=== PATIENT | male | born 1940 | race Caucasian/White ===

== ENCOUNTER → 2020-03-04 14:38 | Outpatient (BNVA) | payer MEDICARE, SELFPAY | PROVIDERS: Visit Provider Family Medicine | DX: I10 Essential (primary) hypertension (principal); N40.0 Benign prostatic hyperplasia without lower urinary tract symptoms; N40.1 Benign prostatic hyperplasia with lower urinary tract symptoms; R35.0 Frequency of micturition; Z12.5 Encounter for screening for malignant neoplasm of prostate | CPT/HCPCS: 80053; 80061; 85025; G0103 ==

== ENCOUNTER → 2020-09-02 17:09 | Outpatient (BNVA) | payer MEDICARE, SELFPAY | PROVIDERS: Visit Provider Family Medicine | DX: E78.2 Mixed hyperlipidemia (principal); I10 Essential (primary) hypertension; N40.1 Benign prostatic hyperplasia with lower urinary tract symptoms; R35.0 Frequency of micturition; Z71.89 Other specified counseling | CPT/HCPCS: 80053; 80061; 85025 ==

== ENCOUNTER → 2020-12-07 15:47 | Outpatient (BNVA) | payer MEDICARE, SELFPAY | PROVIDERS: Visit Provider Family Medicine | DX: I10 Essential (primary) hypertension (principal); E78.2 Mixed hyperlipidemia | CPT/HCPCS: 80053; 80061; 85025 ==

== ENCOUNTER → 2021-02-22 12:14 | Outpatient (BNVA) | payer MEDICARE, SELFPAY | PROVIDERS: Visit Provider Family Medicine | DX: E78.2 Mixed hyperlipidemia (principal); I10 Essential (primary) hypertension | CPT/HCPCS: 80053; 80061; 85025 ==

== ENCOUNTER → 2023-04-12 14:30 | Outpatient (BNVA) | payer MEDICARE, SELFPAY | PROVIDERS: PCP Family Medicine; Visit Provider Family Medicine | DX: E78.2 Mixed hyperlipidemia (principal); I10 Essential (primary) hypertension; N40.0 Benign prostatic hyperplasia without lower urinary tract symptoms | CPT/HCPCS: 80053; 80061; 84443; 85025; G0103 ==

== ENCOUNTER 2023-05-24 12:52 | Emergency (ER) | payer MEDICARE, SELFPAY ==
[2023-05-24 12:54] VITALS: BP 145/88; PULSE 82; RESP 20; TEMP 36.8; O2SAT 98
--- NOTE | 2023-05-24 13:02 | XR_ITS ---
WS: [id number] EXAMINATION: XR chest 1V portable [id number] REASON FOR EXAM: dyspnea/cough COMPARISON: None available. ORDER DATE: 05/24/2023 1:03 PM TECHNIQUE: A single, portable frontal chest x-ray was obtained. X-RAY FINDINGS: There is some subtle groundglass opacity in the left lung base near the costophrenic angle with diaph ragm elevation. Remaining lungs are clear. Pleural spaces are clear. No pleural effusions or pneumothorax. Cardiomediastinal silhouette demonstrates atherosclerotic aortic change. No evidence for pulmonary ed fabián. Soft tissue and osseous structures are unremarkable. No tubes or lines are present. XR/XR chest 1V portable [id number] IMPRESSION: Possible early infiltrate or atelectasis in left lower lobe recommend a lateral chest view for further assessment
--- NOTE | 2023-05-24 13:04 | ED_ITS ---
HPI - General Adult General: Chief complaint: Shortness of Breath/Dyspnea Stated complaint: Weakness Time Seen by Provider: 05/24/23 12:57 Source: patient Mode of arrival: EMS History of Present Illness: 82-year-old male presents emergency complaining of shortness of breath. He was working outside had been outside for a time began to feel weak and lightheaded dizzy had a tingling sensation became increasingly short of breath difficulty with activity. He said that his symptoms did seem to improve so his friend called the ambulance. He states that he feels 100% better now he was given IV fluids in route. He recently moved to this area is not accustomed to the humidity. He has no known history of coronary artery disease he is not diabetic no chronic renal disease or lung disease. Onset (ago): minute(s) Relieving factors: none Exacerbating factors: none Associated symptoms: Reports short of breath; Deny chest pain, confusion, cough, diaphoresis, decreased appetite, dyspnea, fevers/chills, headache(s), malaise, nausea, rash, palpitations, seizures, syncope, vomiting or weakness Treatments prior to arrival: none Review of Systems Const: Denies: fever(s), chills, malaise or diaphoresis ENMT: Denies: throat pain, ear or mastoid pain, nasal discharge or nasal destin estion Card: Denies: chest pain, palpitations or syncope Resp: Denies: dyspnea GI: Denies: abdominal pain, nausea or vomiting : Denies: flank pain, dysuria, urinary frequency or urinary urgency Musc: Denies: neck pain or back pain Skin/Breast: Denies: rash Neuro: Denies: headache(s) or confusion PFSH ED PFSH: Medical History Hx of fracture of hip Surgical History Hx of appendectomy Family History Other AA (alcohol abuse) Hypertension Social History Smoking and tobacco status: former smoker Quit status (tobacco): has quit using tobacco Year quit tobacco: 1981 Former quit date comment: PPD x 20 yrs Alcohol intake: never Substance/Drug Use: current Substance/Drug use frequency: daily Lives independently: Yes Marital status: Single service: Yes status: Discharged branch: [employer] Current occupational status: retired Current gender identity: Male Special ward needs: No Agree to transfusion: Yes Physical Exam Const: GENERAL APPEARANCE: cooperative and comfortable OR IENTATION/CONSCIOUSNESS: Yes awake, Yes oriented to person, Yes oriented to place and Yes oriented to time HENMT: COMMON NORMALS: normocephalic, atraumatic and hearing grossly normal bilaterally HEAD & SCALP: normocephalic and atraumatic Resp: COMMON NORMALS: normal respiratory effort, No retractions, No use of accessory muscles and clear to auscultation bilaterally AUSCULTATION: clear to auscultation bilaterally Cardio: COMMON NORMALS: regular rate, regular rhythm and No murmurs present (Cardio) RATE: regular rate RHYTHM: regular rhythm GI: COMMON NORMALS: Soft to palpation and No hepatosplenomegaly present AUSCULTATION: Yes normoactive bowel sounds PALPATION: Yes Soft to palpation, No Tenderness to palpation present (GI), No Guarding due to palpation present (GI) and Yes No hepatosplenomegaly present Extremity: COMMON NORMALS: normal to inspection, capillary refill normal, no clubbing, cyanosis or edema, no calf tenderness and no pedal edema Neuro: SENSORIUM/ORIENTATION: Yes oriented to person, Yes oriented to place and Yes oriented to time Skin: COMMON NORMALS: no rashes or lesions noted GENERAL SKIN EXAM: no rashes or lesions noted Course Vital Signs: Vital signs: Vital Signs Temperature 98.3 F 05/24/23 12:54 Pulse Rate 89 05/24/23 15:52 Respiratory Rate 20 H 05/24/23 15:52 Blood Pressure 177/95 05/24/23 15:52 Pulse Oximetry 98 05/24/23 15:52 Oxygen Delivery Me thod Room Air 05/24/23 12:54 [facility] - General Adult Medical Decision Making Patient feeling much better. We will stop his hydrochlorothiazide add amlodipine 2.5 p.o. daily. Encouraged him to follow-up with to recheck blood pressure discussed hydrochlorothiazide. Avoid excessive heat maintain good fluid intake return if has further problems. Medical Records I reviewed the patient's medical records. Lab Data I reviewed the patient's lab results. 05/24/23 14:26 05/24/23 14: Laboratory Results WBC 3.8 10^3/uL (4.0-10.0) L 05/24/23 14: RBC 4.07 10^6/uL (4.1-5.3) L 05/24/23 14: Hgb 12.8 g/dL (11.7-16.6) 05/24/23 14: Hct 39.4 % (42.0-52.0) L 05/24/23 14: MCV 96.8 fl (80-94) H 05/24/23 14: MCH 31.4 pg (28.0-34.0) 05/24/23 14: MCHC 32.5 g/dL (30.0-36.0) 05/24/23 14: RDW 12.6 % (12.1-15.1) 05/24/23 14: Plt Count 165 10^3/cmm (130-400) 05/24/23 14: MPV 10.0 fL (7.4-10.4) 05/24/23 14: Neut % (Auto) 69.5 % 05/24/23 14: Lymph % (Auto) 20.7 % 05/24/23 14: Mccormick % (Auto) 7.9 % 05/24/23 14: Eos % (Auto) 1.3 % 05/24/23 14: Baso % (Auto) 0.3 % 05/24/23 14: Neut # (Auto) 2.66 10^3/uL (1.8-7.7) 05/24/23 14: Lymph # (Auto) 0.8 10^3/uL (0.8-4.8) 05/24/23 14: Mccormick # (Auto) 0.3 10^3/uL (0.2-0.9) 05/24/23 14: Eos # (Auto) 0.1 10^3/uL (0.0-0.8) 05/24/23 14: Baso # (Auto) 0.0 10^3/uL (0.0-0.1) 05/24/23 14:26 Nucleated RBC % (auto) 0 % 05/24/23 14:26 Nucleated RBCs # 0.0 /100WBC 05/24/23 14:26 Sodium 138 mmol/L (136-145) 05/24/23 14:26 Potassium 4.2 mmol/L (3.5-5.1) 05/24/23 14:26 Chloride 103 mmol/L (98-107) 05/24/23 14:26 Carbon Dioxide 24 mmol/L (22-29) 05/24/23 14:26 Anion Gap 15.2 (5-19) 05/24/23 14:26 BUN 24 mg/dL (8-23) H 05/24/23 14:26 Creatinine 1.1 mg/dL (0.7-1.2) 05/24/23 14:26 GFR Calculation Not Reportable 05/24/23 14:26 Glucose 99 mg/dL (65-115) 05/24/23 14:26 Calculated Osmolality 290 mOsm/kg (285-295) 05/24/23 14:26 Calcium 8.8 mg/dL (8.5-10.5) 05/24/23 14:26 Total Bilirubin 0.5 mg/dL (0.15-1.2) 05/24/23 14:26 AST 21 U/L (0-40) 05/24/23 14:26 ALT 18 U/L (0-41) 05/24/23 14:26 Alkaline Phosphatase 48 U/L (40-130) 05/24/23 14:26 Total Protein 6.8 g/dL (6.6-8.7) 05/24/23 14:26 Albumin 4.1 g/dL (3.5-5.2) 05/24/23 14:26 Globulin 2.7 g/dL (1.3-4.6) 05/24/23 14:26 Urine Color Yellow (Yellow) 05/24/23 13:07 Urine Appearance Clear (CLEAR) 05/24/23 13:07 Urine pH 7 (5-7) 05/24/23 13:07 Ur Specific [place] 1.005 (1.005-1.030) 05/24/23 13:07 Urine Protein Neg (Negative) 05/24/23 13:07 Urine Glucose (UA) Norm (Normal) 05/24/23 13:07 Urine Ketones Negative (Negative) 05/24/23 13:07 Urine Blood Neg (Negative) 05/24/23 13:07 Urine Nitrate Negative (Negative) 05/24/23 13:07 Urine Bilirubin Neg (Negative) 05/24/23 13:07 Urine Urobilinogen Norm mg/dL (Negative) 05/24/23 13:07 Ur Leukocyte Esterase Negative (Negative) 05/24/23 13:07 Discharge Plan Discharge Patient Disposition: Home Clinical Impression: Heat exhaustion Condition: Stable Prescriptions: New amlodipine 2.5 mg tablet 2.5 mg PO DAILY Qty: 30 0RF Discontinued hydrochlorothiazide 12.5 mg tablet 12.5 mg PO DAILY Qty: 90 2RF No Action lisinopril 40 mg tablet 40 mg PO DAILY Qty: 90 2RF tamsulosin 0.4 mg capsule 0.4 mg PO DAILY Qty: 90 3RF Multi-Vitamins Tablet 1 tab PO DAILY Tylenol Arthritis 650 mg Tablet Extended Release 650 mg PO DAILY C-500 500 mg Tablet 500 mg PO BID Zinc-50 50 mg Tablet 50 mg PO DAILY D3-2000 50 mcg (2,000 unit) Capsule 50 mcg PO DAILY vit B6-L. [id number] 25 mg-3,500 mcg DFE-1 mg-300 mg Capsule 1 cap PO DAILY Discharge Orders: Discharge ED (Routine); Ordered 05/24/23 Ordered By: Deric Olivier Referrals: Nova Ahmadi MD [Primary Care Provider] - Discharge Diet: Usual diet Discharge Activity: Increase activity as tolerated Patient Instructions: Opioid Safety, Pain Management Activity Restrictions/Additional Instructions: Avoid excessive heat increase fluid intake. Consider discussing with your doctor changing your hydrochlorothiazide. Coding Level of Care Code ED Log Sorter for Grzegorz Petit
[2023-05-24 13:13] LABS: Add Urine Microscopic? NO; Charge for UA Resulting for Rev
[2023-05-24 13:19] LABS: Bilirubin Urine Neg (Negative); Blood Urine Neg (Negative); Glucose Urine UA Norm (Normal); Ketones Urine Negative (Negative); Leukocyte Esterase Urine Negative (Negative); Nitrate Urine Negative (Negative); Protein Urine Neg (Negative); Specific Gravity, Urine 1.005 (1.005-1.030); Urine Appearance Clear (CLEAR); Urine Color Yellow (Yellow); Urobilinogen Urine Norm (Negative); pH Urine 7 (5-7)
[2023-05-24 13:50] VITALS: BP 148/83; PULSE 83; RESP 19; O2SAT 98
--- NOTE | 2023-05-24 14:02 | ECG_ITS ---
[facility] Test Date: 2023-05-24 Pat Name: Veto Chavez Department: Room: Gender: Male [employer] Operator: : [id number] Requested By: Deric Tanner Order Number: [id number] Olivier MD: Alexus Scott M.D. Measurements Intervals [place] Rate: 76 P: 69 NM: 153 QRS: 64 QRSD: 93 T: 60 QT: 386 QTc: 435 Interpretive Statements SINUS RHYTHM No previous ECG available for comparison Electronically Signed On 05-24-2023 20:29:41 CDT by Alexus Scott M.D. [email or web address]
--- NOTE | 2023-05-24 14:15 | XR_ITS ---
WS: [id number] EXAMINATION: XR chest 1V [id number] REASON FOR EXAM: lateral COMPARISON: Previous study ORDER DATE: 05/24/2023 2:23 PM FINDINGS/IMPRESSION: No evidence of infiltrate in the left lower lobe on the lateral view. Minor pleural thickening anteri lilian.
[2023-05-24 14:44] VITALS: BP 160/75; PULSE 73; RESP 19; O2SAT 97
[2023-05-24 14:45] LABS: Basophils % 0.3 %; Eosinophils # 0.1 10^3/uL (0.0-0.8); Eosinophils % 1.3 %; Hematocrit 39.4 % (42.0-52.0); Hemoglobin 12.8 g/dL (11.7-16.6); Lymphocytes # 0.8 10^3/uL (0.8-4.8); Lymphocytes % 20.7 %; Mean Corpuscular HGB Conc 32.5 g/dL (30.0-36.0); Mean Corpuscular Hemoglobin 31.4 pg (28.0-34.0); Mean Corpuscular Volume 96.8 fl (80-94); Monocytes # 0.3 10^3/uL (0.2-0.9); Monocytes % 7.9 %; Neutrophils # 2.66 10^3/uL (1.8-7.7); Neutrophils % 69.5 %; Nucleated Red Blood Cells % 0 %; Platelet Count 165 10^3/cmm (130-400); Red Blood Count 4.07 10^6/uL (4.1-5.3); Red Cell Distribution Width 12.6 % (12.1-15.1); White Blood Count 3.8 10^3/uL (4.0-10.0)
[2023-05-24 15:06] LABS: Alanine Aminotransferase 18 U/L (0-41); Albumin Level 4.1 g/dL (3.5-5.2); Alkaline Phosphatase 48 U/L (40-130); Anion Gap 15.2 (5-19); Aspartate Amino Transferase 21 U/L (0-40); Blood Urea Nitrogen 24 mg/dL (8-23); Calcium 8.8 mg/dL (8.5-10.5); Carbon Dioxide 24 mmol/L (22-29); Chloride 103 mmol/L (98-107); Globulin 2.7 g/dL (1.3-4.6); Glucose 99 mg/dL (65-115); Osmolality Calculated 290 mOsm/kg (285-295); Potassium 4.2 mmol/L (3.5-5.1); Sodium 138 mmol/L (136-145); Total Bilirubin 0.5 mg/dL (0.15-1.2); Total Protein 6.8 g/dL (6.6-8.7)
[2023-05-24 15:19] VITALS: BP 167/94; PULSE 78; RESP 21; O2SAT 98
[2023-05-24 15:52] VITALS: BP 177/95; PULSE 89; RESP 20; O2SAT 98
== END 2023-05-24 15:58 | disposition home or self-care (01) ==
PROVIDERS: Emergency Provider Family Medicine; PCP Family Medicine
DX: T67.5XXA Heat exhaustion, unspecified, initial encounter (principal); Z79.899 Other long term (current) drug therapy; Z87.891 Personal history of nicotine dependence; X32.XXXA Exposure to sunlight, initial encounter
CPT/HCPCS: 36415; 71045; 80053; 81003; 85025; 93005; 99285

== ENCOUNTER → 2024-04-01 15:00 | Outpatient (BNVA) | payer MEDICARE, SELFPAY | PROVIDERS: PCP Family Medicine; Visit Provider Family Medicine | DX: Z12.5 Encounter for screening for malignant neoplasm of prostate (principal); I10 Essential (primary) hypertension | CPT/HCPCS: 80053; 80061; 84443; 85025; G0103 ==

== ENCOUNTER → 2025-03-11 10:26 | Outpatient (BNVA) | payer MEDICARE, SELFPAY | PROVIDERS: PCP Nurse Practitioner Family; Visit Provider Nurse Practitioner Family | DX: I10 Essential (primary) hypertension (principal); R35.0 Frequency of micturition; N40.1 Benign prostatic hyperplasia with lower urinary tract symptoms; E78.2 Mixed hyperlipidemia | CPT/HCPCS: 80053; 80061; 84153; 84443; 85025 ==

== ENCOUNTER → 2025-09-09 12:04 | Outpatient (BNVA) | payer MEDICARE, SELFPAY | PROVIDERS: PCP Nurse Practitioner Family; Visit Provider Nurse Practitioner Family | DX: I10 Essential (primary) hypertension (principal) | CPT/HCPCS: 80053; 80061; 84443; 85025 ==

== ENCOUNTER → 2025-09-16 13:19 | Outpatient (BNVA) | payer MEDICARE, SELFPAY | PROVIDERS: PCP Nurse Practitioner Family; Visit Provider Nurse Practitioner Family | DX: R10.32 Left lower quadrant pain (principal) | CPT/HCPCS: 81000 ==

== ENCOUNTER 2025-09-26 10:34 | Outpatient (CLI) | payer MEDICARE, SELFPAY ==
--- NOTE | 2025-09-26 10:45 | USR_ITS ---
PROCEDURE INFORMATION: Exam: US Abdomen; Limited Exam date and time: 09/26/2025 10:49 AM Age: 85 years old Clinical indication: Abdominal pain; Localized; Left lower quadrant (llq); Additional info: R10.32 - left lower quadrant pain TECHNIQUE: Imaging protocol: Real time ultrasound of the abdomen with image documentation. Limited exam focused on the region of clinical interest. COMPARISON: No relevant prior studies available. FINDINGS: Limited sonographic imaging in the left lower quadrant shows no definite hernia. CT could better evaluate as clinically indicated. US/US abdomen limited [id number] IMPRESSION: No definite sonographically evident hernia in the [id number]. Consider CT for further evaluation.
== END 2025-09-26 10:35 | disposition home or self-care (01) ==
LOC: RAD 10:39
PROVIDERS: PCP Nurse Practitioner Family; Visit Provider Nurse Practitioner Family
DX: R10.32 Left lower quadrant pain (principal); R35.0 Frequency of micturition
CPT/HCPCS: 76705